=== PATIENT | female | born 1995 | race Caucasian/White ===

== ENCOUNTER 2016-10-15 19:23 | Emergency (ER) | payer BC, OTHER ==
[~2016-10-15] VITALS: Ht 160 cm; Wt 47.7 kg
[2016-10-15 19:26] VITALS: BP 122/82; TEMP 98.9
[2016-10-15] MEDS ORDERED: SINGULAIR 110 MG/TAB PO (19:28)
[2016-10-15] MEDS ORDERED: LEXAPRO 10MG10 MG PO (19:28)
[2016-10-15 21:50] VITALS: PULSE 73
== END 2016-10-15 21:50 | disposition home or self-care (01) ==
LOC: COL.ER 19:23
DX: Z23 Encounter for immunization (principal); Z20.3 Contact with and (suspected) exposure to rabies

== ENCOUNTER 2016-10-18 16:01 | Outpatient (RCR) | payer BC, OTHER ==
[~2016-10-18] VITALS: Ht 160 cm; Wt 47.7 kg
[~2016-10-18 16:01] MED LIST: LEXAPRO 10MG10 MG PO; SINGULAIR 110 MG/TAB PO
[2016-10-18 16:09] VITALS: BP 133/78; PULSE 81; TEMP 98.2
[2016-10-18] MEDS ORDERED: AMOXICILLI125 MG/51 PO (16:12)
== END 2017-01-16 ==
LOC: COL.ER
DX: Z20.3 Contact with and (suspected) exposure to rabies (principal); Z23 Encounter for immunization

== ENCOUNTER 2017-03-05 14:24 | Outpatient (RCR) | payer OTHER ==
[~2017-03-05 14:24] MED LIST changes: +AMOXICILLI125 MG/51 PO
== END 2017-03-24 14:41 | disposition still patient (30) ==
LOC: WSOH 14:24
DX: S13.4XXA Sprain of ligaments of cervical spine, initial encounter (principal); V49.40XA Driver injured in collision with unspecified motor vehicles in traffic accident, initial encounter; Y99.0 Civilian activity done for income or pay